=== PATIENT | female | born 1970 | race Caucasian/White ===

== ENCOUNTER → 2018-07-24 | Outpatient (CLI) | payer OTHER ==
[~2018-07-24] MED LIST: ACETAMINOPHEN; ERYT500 PO; HYDACE5 PO; IBUPROFEN; LORA10ER; NAPR500 PO; RXCLIN PO; SERT100; TRAZ50 PO
== END ==
LOC: PLD 08:05 → LAB SHORT 08:05
DX: N95.0 Postmenopausal bleeding (principal)
CPT/HCPCS: 88305

== ENCOUNTER → 2018-07-24 | Outpatient (CLI) | payer OTHER ==
[2018-07-26 14:08] LABS: HPV 16 Negative (Negative); HPV 18 Negative (Negative); HPV OTHER HR TYPES Negative (Negative)
== END ==
LOC: LAB 18:16 → LAB SHORT 18:16
PROVIDERS: Registered Nurse Community Health
DX: Z12.4 Encounter for screening for malignant neoplasm of cervix (principal); N95.0 Postmenopausal bleeding
CPT/HCPCS: 87624; G0123